=== PATIENT | male | born 1965 | race Hispanic/Latino ===

== ENCOUNTER 2018-08-03 07:04 | Emergency (ER) | payer BC ==
[2018-08-03 07:20] VITALS: BP 156/110
[2018-08-03] MEDS ORDERED: ECOTRIN PO ONE (07:47)
[2018-08-03 07:48] LABS: Basophils # (Auto) 0.1 K/mm3 (0.0-0.1); Basophils % (Auto) 1.3 % (0.0-1.8); Eosinophils # (Auto) 0.1 K/mm3 (0.0-0.4); Eosinophils % (Auto) 2.1 % (0.0-4.3); Hematocrit 44.4 % (35.5-45.6); Hemoglobin 15.7 gm/dl (11.8-15.2); Lymphocytes # (Auto) 1.7 K/mm3 (1.2-5.4); Lymphocytes % (Auto) 25.9 % (13.4-35.0); Mean Corpuscular HGB Conc 35 % (32-34); Mean Corpuscular Volume 90 fl (84-94); Monocytes # (Auto) 0.5 K/mm3 (0.0-0.8); Monocytes % (Auto) 8.2 % (0.0-7.3); Platelet Count 264 K/mm3 (140-440); Red Blood Count 4.96 M/mm3 (3.65-5.03); Red Cell Distribution Width 12.8 % (13.2-15.2)
[2018-08-03 07:59] LABS: BUN/Creatinine Ratio 11; Blood Urea Nitrogen 12 mg/dL (9-20); Calcium 9.6 mg/dL (8.4-10.2); Hemolysis Index 9
[2018-08-03] MEDS ORDERED: LIDOCAINE VISCOUS 2% PO ONE (07:59)
[2018-08-03] MEDS ORDERED: ALUM-MAG HYDROX-SIMETH 200-200-20MG/5ML PO ONE (07:59)
[2018-08-03 08:09] LABS: Alanine Aminotransferase 10 units/L (7-56); Albumin 4.6 g/dL (3.9-5)
--- NOTE | 2018-08-03 08:11 | Emergency Department Report ---
ED Chest Pain HPI - General Chief Complaint: Chest Pain Stated Complaint: CHEST PAIN Time Seen by Provider: 08/03/18 07:46 Source: patient Mode of arrival: Ambulatory Limitations: No Limitations - History of Present Illness Initial Comments: A 52-year-old male who comes to the ER today with a 3 day history of sharp chest pain. He indicates from the epigastric area up into the substernal area. He states it started on Friday. It gets better when he moves around. It is worse when he lies down. He denies shortness of breath. He has a history of hyperlipidemia. He states that his blood pressure is elevated from time to time but he has never been placed on medications. He does see a PCP routinely. He has never smoked. He is not obese. His father had cardiac valvular disease. Patient is in no acute distress. He is just worried about his chest pain. MD Complaint: chest pain -: days(s) (3) Onset: during rest, other (when flat) Pain Location: substernal, epigastric, other (burning) Quality: sharp Consistency: intermittent Improves With: other (activity) Worsens With: other (laying flat) re: denies: nausea, vomting, diaphoresis, dyspnea, sense of impending doom Treatments Prior to Arrival: none Aspirin use within the Past 7 Days: (0) No - Related Data On Oral Contraceptives: No Home Medications Medication Instructions Recorded Confirmed Last Taken Lovastatin [Altoprev] 20 mg PO QPM 06/28/16 07/18/16 07/17/16 Rizatriptan Benzoate [Maxalt] 10 mg PO Q2HR PRN 06/28/16 07/18/16 1 Week Ago ~07/11/16 Previous Rx's Medication Instructions Recorded Last Taken Type Pantoprazole [Protonix] 40 mg PO QDAY #30 tablet 08/03/18 Unknown Rx Allergies Allergy/AdvReac Type Severity Reaction Status Date / Time No Known Allergies Allergy Verified 07/18/16 07:36 Heart Score - HEART Score History: Slightly suspicious EKG: Normal Age: 45-65 Risk factors: 1-2 risk factors Troponin: < normal limit HEART Score: 2 ED Review of Systems ROS: Stated complaint: CHEST PAIN Other details as noted in HPI Comment: All other systems reviewed and negative Constitutional: denies: chills Eyes: denies: eye pain ENT: denies: ear pain Respiratory: denies: cough Cardiovascular: as per HPI, chest pain Endocrine: denies: intolerance to cold Gastrointestinal: denies: abdominal pain, vomiting Genitourinary: denies: dysuria Skin: denies: lesions Neurological: denies: weakness Hematological/Lymphatic: denies: easy bleeding ED Past Medical Hx - Past Medical History Previous Medical History?: Yes Hx Hypertension: No Hx Sickle Cell Disease: No Hx Headaches / Migraines: Yes (MIGRAINES) Hx HIV: No Additional medical history: high cholesterol - Surgical History Past Surgical History?: Yes Additional Surgical History: hernia repair - Social History Smoking Status: Never Smoker Substance Use Type: None - Medications Home Medications: Home Medications Medication Instructions Recorded Confirmed Last Taken Type Lovastatin [Altoprev] 20 mg PO QPM 06/28/16 07/18/16 07/17/16 History Rizatriptan Benzoate [Maxalt] 10 mg PO Q2HR PRN 06/28/16 07/18/16 1 Week Ago History ~07/11/16 Pantoprazole [Protonix] 40 mg PO QDAY #30 tablet 08/03/18 Unknown Rx ED Physical Exam - General Limitations: No Limitations General appearance: alert - Head Head exam: Present: atraumatic - Eye Eye exam: Present: normal appearance, PERRL - ENT ENT exam: Present: normal exam - Neck Neck exam: Present: normal inspection - Respiratory Respiratory exam: Present: normal lung sounds bilaterally - Cardiovascular Cardiovascular Exam: Present: regular rate - GI/Abdominal GI/Abdominal exam: Present: soft, normal bowel sounds - Rectal Rectal exam: Present: deferred - Back Exam Back exam: Present: normal inspection - Neurological Exam Neurological exam: Present: alert, oriented X3 - Psychiatric Psychiatric exam: Present: normal affect, normal mood ED Course Vital Signs 08/03/18 07:17 Temperature 98.1 F Pulse Rate 99 H Respiratory 18 Rate Blood Pressure 156/110 O2 Sat by Pulse 97 Oximetry JOHN score - John Score Age > 65: (0) No Aspirin use within the Past 7 Days: (0) No 3 or more CAD Risk Factors: (1) Yes 2 or more Angina events in past 24 hrs: (0) No Known CAD with more than 50% Stenosis: (0) No Elevated Cardiac Markers: (0) No ST Deviation Greater than 0.5mm: (0) No JOHN Score: 1 ED Medical Decision Making - Lab Data Result diagrams: 08/03/18 07:26 08/03/18 07:26 - EKG Data -: EKG Interpreted by Me EKG shows normal: sinus rhythm Rate: normal - EKG Data When compared to previous EKG there are: no significant change Interpretation: no acute changes - Radiology Data Radiology results: report reviewed, image reviewed - Medical Decision Making SERIAL TROP NEG SERIAL 12 LEAD NO CHANGE DISCUSSED RISK FACTORS WITH PT AND HE WILL FOLLOW UP WITH [facility] GI COCKTAIL IMPROVED THE PAIN XRAY NEG FOR ACUTE PROCESS WILL DC HOME W DC POC SHOULD FOLLOW UP WITH [facility]- REFERRAL PROVIDED AND HIS PCP FOR HIS BLOOD PRESSURE Lab Results 08/03/18 08/03/18 08/03/18 Range/Units 07:26 07:26 07:26 WBC 6.6 (4.5-11.0) K/mm3 RBC 4.96 (3.65-5.03) M/mm3 Hgb 15.7 H (11.8-15.2) gm/dl Hct 44.4 (35.5-45.6) % MCV 90 (84-94) fl MCH 32 (28-32) pg MCHC 35 H (32-34) % RDW 12.8 L (13.2-15.2) % Plt Count 264 (140-440) K/mm3 Lymph % (Auto) 25.9 (13.4-35.0) % [place] % (Auto) 8.2 H (0.0-7.3) % Eos % (Auto) 2.1 (0.0-4.3) % Baso % (Auto) 1.3 (0.0-1.8) % Lymph # 1.7 (1.2-5.4) K/mm3 [place] # 0.5 (0.0-0.8) K/mm3 Eos # 0.1 (0.0-0.4) K/mm3 Baso # 0.1 (0.0-0.1) K/mm3 Seg Neutrophils % 62.5 (40.0-70.0) % Seg Neutrophils # 4.1 (1.8-7.7) K/mm3 Sodium 142 (137-145) mmol/L Potassium 3.7 (3.6-5.0) mmol/L Chloride 100.4 (98-107) mmol/L Carbon Dioxide 29 (22-30) mmol/L Anion Gap 16 mmol/L BUN 12 (9-20) mg/dL Creatinine 1.1 (0.8-1.5) mg/dL Estimated GFR > 60 ml/min BUN/Creatinine Ratio 11 % Glucose 130 H (75-100) mg/dL Calcium 9.6 (8.4-10.2) mg/dL Total Bilirubin 0.40 (0.1-1.2) mg/dL Direct Bilirubin < 0.2 (0-0.2) mg/dL Indirect Bilirubin 0.2 mg/dL AST 17 (5-40) units/L ALT 10 (7-56) units/L Alkaline Phosphatase 95 (35-129) units/L Troponin T < 0.010 (0.00-0.029) ng/mL Total Protein 7.0 (6.3-8.2) g/dL Albumin 4.6 (3.9-5) g/dL Albumin/Globulin Ratio 1.9 % - Differential Diagnosis ro acs v gerd Critical care attestation.: If time is entered above; I have spent that time in minutes in the direct care of this critically ill patient, excluding procedure time. ED Disposition Clinical Impression: GERD (gastroesophageal reflux disease), Elevated blood pressure reading, Atypical chest pain Disposition: DC-01 TO HOME OR SELFCARE Is pt being admited?: No Does the pt Need Aspirin: No Condition: Stable Instructions: Gastroesophageal Reflux Disease (ED), Chest Pain (ED) Additional Instructions: bland diet hydrate well with water take nsaids/motrin with food avoid spicy food FOLLOW UP WITH CARDIOLOGY WE DISCUSSED SEE REFERRAL BELOW LET THEM KNOW YOU WERE SEEN HERE AND THEY CAN PULL YOUR RECORDS MED ORDERED TODAY Prescriptions: Pantoprazole [Protonix] 40 mg PO QDAY #30 tablet Referrals: PRIMARY CARE, [Primary Care Provider] - 3-5 Days JOHNNY VILLAGOMEZ MD [Staff Physician] - 3-5 Days Time of Disposition: 10:53
[2018-08-03 08:15] LABS: Bilirubin,Direct < 0.2 mg/dL (0-0.2)
--- NOTE | 2018-08-03 08:48 | XRay Report ---
ROUTINE CHEST, TWO VIEWS: HISTORY: chest pain. The trachea, heart, mediastinal contour, lung jones and bony thorax are unremarkable. IMPRESSION: Unremarkable chest x-ray.
[2018-08-03] MEDS ORDERED: PROTONIX PO ONE (09:15)
== END 2018-08-03 12:05 | disposition home or self-care (01) ==
LOC: ED 07:04
DX: K21.9 Gastro-esophageal reflux disease without esophagitis (principal); R07.89 Other chest pain; G43.909 Migraine, unspecified, not intractable, without status migrainosus; E78.00 Pure hypercholesterolemia, unspecified; Z79.899 Other long term (current) drug therapy
CPT/HCPCS: 36415; 71046; 80048; 80076; 84484; 85025; 93005; 93010

== ENCOUNTER 2019-05-25 06:46 | Outpatient (CLI) | payer BC ==
[2019-05-25 07:05] LABS: Basophils # (Auto) 0.1 K/mm3 (0.0-0.1); Basophils % (Auto) 1.4 % (0.0-1.8); Eosinophils # (Auto) 0.3 K/mm3 (0.0-0.4); Eosinophils % (Auto) 3.9 % (0.0-4.3); Hematocrit 43.3 % (35.5-45.6); Hemoglobin 15.2 gm/dl (11.8-15.2); Lymphocytes # (Auto) 1.9 K/mm3 (1.2-5.4); Mean Corpuscular HGB Conc 35 % (32-34); Mean Corpuscular Volume 91 fl (84-94); Monocytes # (Auto) 0.7 K/mm3 (0.0-0.8); Monocytes % (Auto) 10.2 % (0.0-7.3); Platelet Count 240 K/mm3 (140-440); Red Blood Count 4.78 M/mm3 (3.65-5.03); Red Cell Distribution Width 12.7 % (13.2-15.2)
[2019-05-25 08:52] LABS: Alanine Aminotransferase 14 units/L (7-56); Albumin 4.7 g/dL (3.9-5); BUN/Creatinine Ratio 19; Blood Urea Nitrogen 19 mg/dL (9-20); Calcium 9.5 mg/dL (8.4-10.2); Chol/HDL Ratio 3.71 %; HDL Cholesterol 52 mg/dL (40-59); Hemolysis Index 2; LDL Cholesterol,Direct 137 mg/dL (50-130)
== END 2019-05-25 06:47 | disposition home or self-care (01) ==
LOC: LAB 06:46
PROVIDERS: ATTEND Physician Assistant Medical
DX: R03.0 Elevated blood-pressure reading, without diagnosis of hypertension (principal); E78.00 Pure hypercholesterolemia, unspecified
CPT/HCPCS: 36415; 80053; 80061; 85025

== ENCOUNTER 2020-05-18 08:18 | Outpatient (CLI) | payer BC ==
[2020-05-18 09:21] LABS: Alanine Aminotransferase 14 units/L (7-56); Albumin 4.6 g/dL (3.9-5); BUN/Creatinine Ratio 12; Blood Urea Nitrogen 13 mg/dL (9-20); Calcium 9.8 mg/dL (8.4-10.2); Chol/HDL Ratio 3.61 %; HDL Cholesterol 59 mg/dL (40-59); Hemolysis Index 9; LDL Cholesterol,Direct 141 mg/dL (50-130)
== END 2020-05-18 08:19 | disposition home or self-care (01) ==
LOC: LAB 08:18
PROVIDERS: ATTEND Physician Assistant Medical
DX: Z12.5 Encounter for screening for malignant neoplasm of prostate (principal); R73.01 Impaired fasting glucose; E78.00 Pure hypercholesterolemia, unspecified; Z79.899 Other long term (current) drug therapy
CPT/HCPCS: 36415; 80053; 80061; 83036; 84153

== ENCOUNTER 2020-11-02 06:36 | Outpatient (CLI) | payer BC ==
[2020-11-02 07:18] LABS: Alanine Aminotransferase 14 units/L (7-56); Albumin 4.1 g/dL (3.9-5); BUN/Creatinine Ratio 20; Blood Urea Nitrogen 20 mg/dL (9-20); Calcium 9.2 mg/dL (8.4-10.2); Chol/HDL Ratio 3.81 %; HDL Cholesterol 49 mg/dL (40-59); Hemolysis Index 5; LDL Cholesterol,Direct 134 mg/dL (50-130)
== END 2020-11-02 06:37 | disposition home or self-care (01) ==
LOC: LAB 06:36
PROVIDERS: ATTEND Physician Assistant Medical
DX: E78.00 Pure hypercholesterolemia, unspecified (principal); Z79.899 Other long term (current) drug therapy
CPT/HCPCS: 36415; 80053; 80061

== ENCOUNTER 2021-03-21 11:03 | Outpatient (CLI) | payer BC ==
--- NOTE | 2021-03-21 13:01 | Cat Scan Report ---
CT ABDOMEN AND PELVIS WITHOUT CONTRAST INDICATION / CLINICAL INFORMATION: ABDOMINAL PAIN. Inguinal hernia, burning sensation in stomach, pre vious ventral wall hernia repair. TECHNIQUE: Axial CT images were obtained through the abdomen and pelvis without IV contrast. Sagittal and henriquez l reformatted images. All CT scans at this location are performed using CT dose reduction for ALARA b y means of automated exposure control. COMPARISON: None available. FINDINGS: LOWER CHEST: No significant abnormality. Heart size is normal. The lung bases are clear with no evide nce of parenchymal disease. LIVER: No significant abnormality. GALLBLADDER: No significant abnormality. BILE DUCTS: No significant abnormality. PANCREAS: No significant abnormality. SPLEEN: No significant abnormality. ADRENALS: No significant abnormality. RIGHT KIDNEY and URETER: A 3 mm calyceal stone is identified in the mid right kidney. Punctate calyce al stone is suspected at the inferior pole. No cystic disease, mass or hydronephrosis. LEFT KIDNEY and URETER: Punctate calyceal stone is identified at the inferior pole. No cystic disease , mass or hydronephrosis. STOMACH and SMALL BOWEL: The stomach is mostly collapsed and poorly evaluated although there is sugge stion of mild gastric mucosal thickening which could represent a mild gastritis. No ulceration or mas s is appreciated. The small bowel loops are unremarkable. No hiatal hernia. COLON: There is mild diverticulosis of the distal colon. No acute inflammatory changes. No obvious ma ss or obstruction. APPENDIX: No significant abnormality. PERITONEUM: No free fluid. No free air. No fluid collection. LYMPH NODES: No significant adenopathy. AORTA and ARTERIES: No significant abnormality. IVC and VEINS: No significant abnormality. URINARY BLADDER: No significant abnormality. REPRODUCTIVE ORGANS: No significant abnormality. ADDITIONAL FINDINGS: Very small bilateral fat-containing inguinal hernias are identified. These herni as measure approximately 1 cm in greatest thickness. No bowel loops are incorporated. Previous ventra l wall hernia repair changes are also identified. The graft appears intact with no evidence of recurr ent hernia. SKELETAL SYSTEM: No significant abnormality. IMPRESSION: Few tiny bilateral renal stones as described. No ureteral stones or hydronephrosis. Question findings associated with a mild gastritis. Very small bilateral fat-containing inguinal hernias. Previous ventral wall hernia repair appears intact. Mild diverticulosis of the distal colon. Signer Name: Carrillo Pena Jr, MD Signed: 03/21/2021 12:56 PM Workstation Name: [id number]
== END 2021-03-21 11:04 | disposition home or self-care (01) ==
LOC: CT 11:03
PROVIDERS: ATTEND Internal Medicine
DX: N20.0 Calculus of kidney (principal); K40.91 Unilateral inguinal hernia, without obstruction or gangrene, recurrent; K57.30 Diverticulosis of large intestine without perforation or abscess without bleeding
CPT/HCPCS: 74176

== ENCOUNTER 2021-04-24 06:35 | Outpatient (CLI) | payer BC ==
[2021-04-24] MEDS ORDERED: SODIUM CHLORIDE 0.9% 1000 ML 1,000 ML ONE (07:13)
[2021-04-24 07:29] LABS: Alanine Aminotransferase 9 units/L (7-56); Albumin 4.9 g/dL (3.9-5); BUN/Creatinine Ratio 12; Blood Urea Nitrogen 11 mg/dL (9-20); Calcium 9.8 mg/dL (8.4-10.2); Chol/HDL Ratio 3.41 %; HDL Cholesterol 56 mg/dL (40-59); Hemolysis Index 8; LDL Cholesterol,Direct 128 mg/dL (50-130)
--- NOTE | 2021-04-24 07:44 | Anesthesia Day of Surgery ---
Anesthesia Day of Surgery - Day of Surgery Patient Examined: Yes Patient H&P Reviewed: Yes Patient is NPO: Yes
--- NOTE | 2021-04-24 07:44 | Anesthesia Consultation ---
Anesthesia Consult and Med Hx Date of service: 04/24/21 - Airway Anesthetic Teeth Evaluation: Good ROM Head & Neck: Adequate Mental/Hyoid Distance: Adequate Mallampati Class: Class I Intubation Access Assessment: Probably Good - Pulmonary Exam CTA: Yes - Cardiac Exam Cardiac Exam: RRR - Pre-Operative Health Status Proposed Anesthetic Plan: MAC - Pulmonary Hx Smoking: No Hx Asthma: Yes (Inhaler used PRN) Hx Sleep Apnea: No - Cardiovascular System Hx Hypertension: No (High cholesterol) - Central Nervous System Hx Neuromuscular Disorder: Yes (migraines) Hx Psychiatric Problems: No - Endocrine Hx Insulin Dependent Diabetes: No - Hematic Hx Anemia: No Hx Sickle Cell Disease: No - Other Systems Hx Alcohol Use: No Hx Substance Use: No Hx Cancer: No Hx Obesity: No - Additional Comments Anesthesia Medical History Comments: No history of anesthetic complications.
--- NOTE | 2021-04-24 09:29 | Short Stay Summary ---
Short Stay Documentation Date of service: 04/24/21 - History H&P: obtained from office Past Surgical History: hernia repair Social history: no significant social history - Allergies and Medications Current Medications: Allergies No Known Allergies Allergy (Verified 07/18/16 07:36) Home Medications Medication Instructions Recorded Confirmed Last Taken Type Lovastatin [Altoprev] 20 mg PO QPM 06/28/16 07/18/16 07/17/16 History Rizatriptan Benzoate [Maxalt] 10 mg PO Q2HR PRN 06/28/16 07/18/16 1 Week Ago History ~07/11/16 Pantoprazole [Protonix] 40 mg PO QDAY #30 tablet 08/03/18 Unknown Rx - Brief post op/procedure progress note Date of procedure: 04/24/21 Findings: see dictation Estimated blood loss: none Pathology: list (1. antral biopsies for h.pylori, 2. distal esophagus, r/o Lucas's) Specimen disposition: to lab Condition: stable - Disposition Condition at discharge: Good Disposition: 01 HOME / SELF CARE / HOMELESS - Discharge Diagnoses (1) GERD (gastroesophageal reflux disease) Status: Acute (2) Non-cardiac chest pain Status: Acute (3) Epigastric pain Status: Acute Short Stay Discharge Plan Activity: other (no driving for 24 hours.) Weight Bearing Status: Full Weight Bearing Diet: regular Follow up with: MAGDALENE LEE PA [Primary Care Provider] - 7 Days
--- NOTE | 2021-04-24 09:32 | Operative Report ---
Operative Report Operative Report: Date of procedure: 04/24/2021 Procedure: Esophagogastroduodenoscopy with biopsies of the antrum and biopsies of the distal esophagus. Preprocedure diagnosis: Epigastric pain, noncardiac chest pain, gastroesophageal reflux disease Post procedure diagnosis: Bile gastritis. Distal esophagitis. Rule out Ba rrett's. Endoscopist: Dr. Narvaez Anesthesia: Monitored anesthesia care per anesthesia department Medications: Propofol per anesthesia. Estimated blood loss: 0 After careful discussion of the nature and purpose of the procedure as well as details the technique risks benefits and alternatives consent was obtained. The patient was placed in the left lateral decubitus position and medicated per anesthesia. The tip of the VeriTainer EQ 570 video scope was passed per orum under direct vision into the esophagus and advanced into the stomach and descending duodenum. The descending duodenum the duodenal bulb and pylorus were symmetrical and normal. The scope was withdrawn into the stomach and the stomach then gently insufflated with air. The antrum revealed minimal patchy erythema. Biopsies were taken to exclude H. pylori infection. The stomach was further insufflated and the scope was then retroflexed and partially withdrawn. The cardia, fundus, and body of the stomach were within normal limits and easily distensible.The scope was then withdrawn in the forward position. The esophagogastric junction was at 39 cm. There was mild distal esophagitis present with some irregularity of the Z-line. No mass-effect or ulceration was present. Biopsies were taken in the distal esophagus for exclusion of Lucas's. The esophageal body was otherwise normal throughout. The procedure was was well tolerated and the patient was observed in recovery. Impressions: Reflux esophagitis, rule out Lucas's. Mild gastritis likely secondary to bile reflux. Plan: Await pathology. The patient will call the office in 1 week for discussion. Continue present medical regimen while awaiting pathology. Electronically signed: Canelo Narvaez MD
--- NOTE | 2021-04-24 09:35 | Post Anesthesia Evaluation ---
- Post Anesthesia Evaluation Patient Participated: Yes Airway Patent: Yes Stable Respiratory Function: Yes Nausea/Vomiting: No Temp > 96.8F: Yes Pain Manageable: Yes Adequeate Hydration: Yes Anesthesia Complications: No
[2021-04-24 10:58] VITALS: BP 144/90
== END 2021-04-24 10:15 | disposition home or self-care (01) ==
LOC: GIO 06:35
PROVIDERS: ATTEND Internal Medicine Gastroenterology
DX: E78.00 Pure hypercholesterolemia, unspecified (principal); R73.01 Impaired fasting glucose
CPT/HCPCS: 36415; 80053; 80061; 83036; 88305; 88342; J7030

== ENCOUNTER 2021-08-22 06:39 | Outpatient (CLI) | payer BC ==
[2021-08-22 07:14] LABS: Hematocrit 43.4 % (35.5-45.6); Mean Corpuscular HGB Conc 35 % (32-34); Mean Corpuscular Volume 90 fl (84-94); Platelet Count 276 K/mm3 (140-440); Red Blood Count 4.83 M/mm3 (3.65-5.03); Red Cell Distribution Width 12.5 % (13.2-15.2)
[2021-08-22 07:36] LABS: Alanine Aminotransferase 14 units/L (7-56); Albumin 4.6 g/dL (3.9-5); BUN/Creatinine Ratio 17; Blood Urea Nitrogen 17 mg/dL (9-20); Calcium 9.6 mg/dL (8.4-10.2); Chol/HDL Ratio 2.98 %; HDL Cholesterol 59 mg/dL (40-59); Hemolysis Index 12; LDL Cholesterol,Direct 106 mg/dL (50-130)
== END 2021-08-22 06:40 | disposition home or self-care (01) ==
LOC: LAB 06:39
PROVIDERS: ATTEND Internal Medicine
DX: Z13.29 Encounter for screening for other suspected endocrine disorder (principal); R73.01 Impaired fasting glucose; E78.00 Pure hypercholesterolemia, unspecified; I10 Essential (primary) hypertension; Z79.899 Other long term (current) drug therapy
CPT/HCPCS: 36415; 80053; 80061; 83036; 84443; 85027

== ENCOUNTER 2022-04-11 06:20 | Outpatient (CLI) | payer BC ==
[2022-04-11 06:44] LABS: Hematocrit 40.4 % (35.5-45.6); Hemoglobin 14.3 gm/dl (11.8-15.2); Mean Corpuscular HGB Conc 35 % (32-34); Mean Corpuscular Volume 89 fl (84-94); Platelet Count 282 K/mm3 (140-440); Red Blood Count 4.54 M/mm3 (3.65-5.03); Red Cell Distribution Width 12.7 % (13.2-15.2)
[2022-04-11 07:18] LABS: Alanine Aminotransferase 10 units/L (7-56); Albumin 4.7 g/dL (3.9-5); BUN/Creatinine Ratio 18; Blood Urea Nitrogen 21 mg/dL (9-20); Calcium 9.2 mg/dL (8.4-10.2); Chol/HDL Ratio 3.76 %; HDL Cholesterol 50 mg/dL (40-59); Hemolysis Index 5; LDL Cholesterol,Direct 115 mg/dL (50-130)
== END 2022-04-11 06:21 | disposition home or self-care (01) ==
LOC: LAB 06:20
PROVIDERS: ATTEND Internal Medicine
DX: E78.00 Pure hypercholesterolemia, unspecified (principal); R73.01 Impaired fasting glucose; I10 Essential (primary) hypertension
CPT/HCPCS: 36415; 80053; 80061; 83036; 85027